=== PATIENT | female | born 1975 | race Caucasian/White ===

== ENCOUNTER 2017-07-22 10:39 | Emergency (ER) | payer OTHER ==
[~2017-07-22] VITALS: Ht 154.9 cm; Wt 63.5 kg
[2017-07-22] MEDS ORDERED: BENZTROPINE MESYLATE (2MG/2ML) 2 MG/2 ML AMPUL ONE (10:42)
[2017-07-22] MEDS ORDERED: HALOPERIDOL LACTATE INJ 5 MG/ML VIAL ONE (10:42)
[2017-07-22] MEDS ORDERED: LORAZEPAM INJ 2 MG/ML VIAL ONE (10:43)
[2017-07-22] MEDS ORDERED: HALOPERIDOL LACTATE INJ 5 MG/ML VIAL IM ONE (11:00)
[2017-07-22] MEDS ORDERED: BENZTROPINE MESYLATE (2MG/2ML) 2 MG/2 ML AMPUL IM ONE (11:00)
[2017-07-22] MEDS ORDERED: LORAZEPAM INJ 2 MG/ML VIAL IM ONE (11:00)
--- NOTE | 2017-07-22 11:00 | NUR ---
malena 86 from mental health outpatient for bizarre behavior and language, NAD noted, VSS, resp even and unlabored, pt was put on monitor, waiting for md hummel.
[2017-07-22 11:16] LABS: BASOPHILS # (AUTO) 0.1 /CMM (0.0-0.2); BASOPHILS % (AUTO) 0.5 % (0.0-2.0); EOSINOPHILS % (AUTO) 2.4 % (0.0-6.0); HEMATOCRIT 41 % (33-45); LYMPHOCYTES # (AUTO) 2.4 /CMM (0.8-4.8); LYMPHOCYTES % (AUTO) 19.9 % (20.0-44.0); MEAN CORPUSCULAR HGB CONC 34 g/dl (31.0-36.0); MEAN CORPUSCULAR VOLUME 86 fL (82-100); MONOCYTES # (AUTO) 0.8 /CMM (0.1-1.30); MONOCYTES % (AUTO) 6.7 % (2.0-12.0); NEUTROPHILS # (AUTO) 8.2 /CMM (1.8-8.9); NEUTROPHILS % (AUTO) 70.5 % (43.0-81.0); PLATELET COUNT (AUTO) 393 /CMM (150-450); RDW COEFFICIENT OF VARIATION 12.7 (11.5-15.0); RED BLOOD CELL COUNT(AUTO) 4.78 MIL/uL (4.0-5.2); WHITE BLOOD COUNT (AUTO) 11.8 K/uL (4.3-11.0)
[2017-07-22 11:22] LABS: CALCIUM, SERUM 8.2 mg/dL (8.5-10.1); CARBON DIOXIDE 20 mmol/L (21-32); CHLORIDE 106 mmol/L (98-107); GLUCOSE 166 mg/dL (74-106); POTASSIUM 3.4 mmol/L (3.5-5.1); SODIUM SERUM 140 mmol/L (136-145); UREA NITROGEN, BLOOD 12 mg/dL (7-18)
[2017-07-22 11:28] LABS: ALANINE AMINOTRANSFERASE 21 U/L (12-78); ALBUMIN 3.1 g/dL (3.4-5.0); ALCOHOL, BLOOD < 3 mg/dL (0-0); ALKALINE PHOSPHATASE 86 U/L (46-116); ASPARTATE AMINOTRANSFERASE 22 U/L (15-37); BILIRUBIN,DIRECT 0.1 mg/dL (0.0-0.2); BILIRUBIN,TOTAL 0.3 mg/dL (0.2-1.0); SALICYLATE 3.7 mg/dL (2.8-20.0)
[2017-07-22 11:29] LABS: ACETAMINOPHEN 0 ug/ml (10-30)
--- NOTE | 2017-07-22 11:46 | NUR ---
urine collected, called lab for chicken picker
[2017-07-22 12:11] LABS: APPEARANCE,URINE Slightly Cloudy (CLEAR); BILIRUBIN,URINE Negative (NEGATIVE); BLOOD, URINE Negative Ery/uL (NEGATIVE); KETONES,URINE Negative (NEGATIVE); LEUKOCYTE ESTERASE ,URINE Negative (NEGATIVE); NITRITE, URINE Negative (NEGATIVE); PROTEIN,URINE 100 mg/dl (NEGATIVE); UGLUCOSE Negative (NEGATIVE)
[2017-07-22 12:12] LABS: COLOR,URINE Dark Yellow (YELLOW)
[2017-07-22 12:19] LABS: BACTERIA,URINE None seen /HPF (None Seen); MUCUS,URINE Few /LPF (None Seen); SQUAMOUS EPITHELIAL CELL,UR Few /HPF (None Seen)
--- NOTE | 2017-07-22 12:57 | NUR ---
CALLED JOSE TINAJERO FOR PSYCH EVAL
--- NOTE | 2017-07-22 15:51 | NUR ---
MEAL TRAY PROVIDED TO THE PT
--- NOTE | 2017-07-22 17:57 | NUR ---
CALLED P[facility] FOR PSYCH EVAL
--- NOTE | 2017-07-22 19:00 | NUR ---
Patient is resting comfortably in bed with eyes closed. Easily aroused. VSS
--- NOTE | 2017-07-22 23:14 | NUR ---
RECEIVED REPORT FROM KAREN SELLERS FOR RADHA. PT RESTING, APPEARS COMFORTABLE IN BED.
--- NOTE | 2017-07-23 00:34 | NUR ---
Patient is resting comfortably in bed with eyes closed. Easily aroused. VSS
--- NOTE | 2017-07-23 06:16 | NUR ---
PT AOX3. DR LIGHT AT BEDSIDE SPEAKING TO PT.
--- NOTE | 2017-07-23 06:36 | NUR ---
Patient discharged to home in stable condition. Written and verbal after care instructions given. Patient verbalizes understanding of instruction. VSS upon discharge. Pt ambulated with steady gait out of ER. Pt denies SI and HI.
[2017-07-23 06:37] VITALS: BP 118/77
== END 2017-07-23 06:39 | disposition home or self-care (01) ==
LOC: ER 10:41 → TELE 17:54 → UNDOADMIN 17:54 → ER 07-23 06:39
DX: F23 Brief psychotic disorder (principal); F19.10 Other psychoactive substance abuse, uncomplicated
CPT/HCPCS: 36415; 71045-TC; 80048-TC; 80076-TC; 80305; 81000-TC; 82962-TC; 84703-TC; 85025-TC; 87081-TC; A4606; G0480; J0515; J1630; J2060; Z7610

== ENCOUNTER 2017-08-20 16:04 | Inpatient (IN) | payer OTHER ==
[~2017-08-20] VITALS: Ht 157.5 cm; Wt 73.9 kg
[2017-08-20] MEDS ORDERED: HALOPERIDOL LACTATE INJ 5 MG/ML VIAL ONE (16:50)
--- NOTE | 2017-08-20 16:50 | NUR ---
PT MEDICATED ORDERED.
[2017-08-20] MEDS ORDERED: HALOPERIDOL LACTATE INJ 5 MG/ML VIAL IM ONE (17:00)
--- NOTE | 2017-08-20 17:00 | NUR ---
ASSISTED FRANCHISE SALES MANAGER AT FOR BLOOD DRAW WHEN PT SUDDENLY BECAME RESTLESS, AGITATED. KICKING, YELLING, ALMOST HIT STAFF. SAFELY PLACED ON RESTRAINTS PER PROTOCOL. AT BS. VSS. WILL CONTINUE TO MONITOR.
[2017-08-20 17:03] LABS: BASOPHILS # (AUTO) 0.1 /CMM (0.0-0.2); BASOPHILS % (AUTO) 0.5 % (0.0-2.0); EOSINOPHILS % (AUTO) 0.4 % (0.0-6.0); HEMATOCRIT 41 % (33-45); LYMPHOCYTES # (AUTO) 1.8 /CMM (0.8-4.8); MEAN CORPUSCULAR HGB CONC 34 g/dl (31.0-36.0); MEAN CORPUSCULAR VOLUME 86 fL (82-100); MONOCYTES # (AUTO) 0.5 /CMM (0.1-1.30); MONOCYTES % (AUTO) 5.4 % (2.0-12.0); NEUTROPHILS # (AUTO) 7.7 /CMM (1.8-8.9); NEUTROPHILS % (AUTO) 75.7 % (43.0-81.0); PLATELET COUNT (AUTO) 315 /CMM (150-450); RDW COEFFICIENT OF VARIATION 12.6 (11.5-15.0); RED BLOOD CELL COUNT(AUTO) 4.75 MIL/uL (4.0-5.2); WHITE BLOOD COUNT (AUTO) 10.1 K/uL (4.3-11.0)
[2017-08-20 17:37] LABS: CALCIUM, SERUM 8.3 mg/dL (8.5-10.1); CARBON DIOXIDE 23 mmol/L (21-32); CHLORIDE 109 mmol/L (98-107); CREATININE 0.7 mg/dL (0.6-1.3); GLUCOSE 102 mg/dL (74-106); POTASSIUM 3.2 mmol/L (3.5-5.1); SODIUM SERUM 141 mmol/L (136-145); UREA NITROGEN, BLOOD 11 mg/dL (7-18)
[2017-08-20 17:40] LABS: ALANINE AMINOTRANSFERASE 22 U/L (12-78); ALBUMIN 3.5 g/dL (3.4-5.0); ALCOHOL, BLOOD < 3 mg/dL (0-0); ALKALINE PHOSPHATASE 69 U/L (46-116); ASPARTATE AMINOTRANSFERASE 22 U/L (15-37); BILIRUBIN,DIRECT 0.1 mg/dL (0.0-0.2); BILIRUBIN,TOTAL 0.5 mg/dL (0.2-1.0); SALICYLATE 4.1 mg/dL (2.8-20.0); TOTAL PROTEIN, SERUM 7.1 g/dL (6.4-8.2)
[2017-08-20 17:44] LABS: THYROID STIMULATING HORMONE 0.808 uIU/mL (0.358-3.74)
[2017-08-20 17:45] LABS: ACETAMINOPHEN < 2 ug/ml (10-30)
--- NOTE | 2017-08-20 19:00 | NUR ---
PT TAKEN TO CT.
--- NOTE | 2017-08-20 19:11 | NUR ---
URINE SAMPLE OBTAINED, SENT.
--- NOTE | 2017-08-20 19:20 | NUR ---
PT PROVIDED WITH WATER TO DRINK REQUESTED. KEPT COMFORTABLE. VSS. WILL MONITOR.
[2017-08-20 19:48] LABS: APPEARANCE,URINE Clear (CLEAR); BILIRUBIN,URINE SMALL (NEGATIVE); BLOOD, URINE Negative Ery/uL (NEGATIVE); COLOR,URINE Yellow (YELLOW); KETONES,URINE 15 (NEGATIVE); LEUKOCYTE ESTERASE ,URINE Negative (NEGATIVE); NITRITE, URINE Negative (NEGATIVE); PROTEIN,URINE 100 mg/dl (NEGATIVE); UGLUCOSE Negative (NEGATIVE); UROBILINOGEN,URINE 0.2 EU/dL (0.2)
[2017-08-20 20:06] LABS: BACTERIA,URINE Few /HPF (None Seen); RBC,URINE 0-2 /HPF (0-2); SQUAMOUS EPITHELIAL CELL,UR Many /HPF (None Seen)
--- NOTE | 2017-08-20 20:46 | NUR ---
CALLED NURSING DEPUTY FIRE CHIEF AND REQUESTED A TELE BED FOR THIS PT.
--- NOTE | 2017-08-20 20:52 | NUR ---
PT IS ASSIGNED TO [facility] #:[phone], PT IS DIAGNOSED WITH ALTERED MENTAL STATUS/BRAIN TUMOR, AND DR CUMMINGS IS THE ACCEPTING MD.
--- NOTE | 2017-08-20 22:02 | NUR ---
REPORT GIVEN TO BRIGIDO JONES FOR [id number].
[2017-08-20] MEDS ORDERED: IV NS 0.9% 1,000 ML IV PRN (22:03)
[2017-08-20] MEDS ORDERED: POTASSIUM CHLORIDE 20 MEQ TAB.PRT.SR PO ONE (22:30)
[2017-08-20] MEDS ORDERED: MAG HYDROX/AL HYDROX/SIMETH 30 ML UDC PO PRN (22:30)
[2017-08-20] MEDS ORDERED: ZOLPIDEM TARTRATE 5 MG TABLET PO PRN (22:30)
[2017-08-20] MEDS: POTASSIUM CL. PREMIX PERIPHER. 50 ML IV SCH ×2 (22:30→23:30)
[2017-08-20] MEDS ORDERED: LORAZEPAM INJ 2 MG/ML VIAL IV PRN (22:30)
[2017-08-20] MEDS ORDERED: Z GUARD REMEDY 2 OZ OINT TP PRN (22:30)
[2017-08-20] MEDS: ENOXAPARIN SODIUM 40 MG/0.4 ML DISP.SYRIN SQ SCH (22:30)
[2017-08-20] MEDS ORDERED: HYDROCODONE/APAP 5/325MG 1 EACH TABLET PO PRN (22:30)
[2017-08-20] MEDS ORDERED: ACETAMINOPHEN 325 MG TABLET PO PRN (22:30)
[2017-08-20] MEDS ORDERED: ONDANSETRON HCL/PF 4 MG/2 ML VIAL IVP PRN (22:30)
[2017-08-20] MEDS ORDERED: MAGNESIUM HYDROXIDE 30 ML UDC PO PRN (22:30)
--- NOTE | 2017-08-20 22:35 | NUR ---
ADMISSION NOTES: RECEIVED REPORT FROM JOVANNA GANN RN, PT BROUGHT TO THE UNIT VIA GURNEY, PT ABLE TO AMBULATE WITH ASSISTANCE. PT BROUGHT TO ER BY POLICE PT BEEN FOUND WITH BIZARRE BEHAVIOR AND AGITATION,PER ER REPORT PT BEEN LOUD, YELLING, UNPREDICTABLE, AND HEARING VOICES. PT A/O X2, ON RA RESPIRATION EVEN AND UNLABORED. SITTER AT BED SIDE. PT HAS NO IV ACCESS, PT REFUSING FOR IT. ORIENTED PT TO UNIT POLICY AND HOURLY ROUNDING. ASSESSMENT PERFORMED, ASKED PT IF SHE'S STILL HEARING VOICES, PT RESPOND "YES", WHEN ASKED WHAT IS THE VOICE TELLING HER, PT DID NOT ANSWER. SITTER WITNESS. ADMISSION ASSESSMENT PERFORMED, BUT UNABLE TO GET ENOUGH INFORMATION PT REFUSED TO ANSWER MOST OF THE QUESTION. PT ALSO REFUSED SKIN ASSESSMENT AND REFUSED TO HAVE HER BAG CHECK FOR INVENTORY. VS TAKEN AND RECORDED. PLACED ON TELE MONITORING, SINUS RHYTHM HR 85. DESPITE GIVING EDUCATION. DYNAMICS AX DEVELOPER AWARE. SUPERVISOR DENTAL LABORATORY MADE AWARE. SAFETY PRECAUTIONS FOR FALL INITIATED, CALL LIGHT IN REACH, WILL CONTINUE MONITORING PT.
--- NOTE | 2017-08-20 22:49 | NUR ---
rn notes: pt came without iv access. explain to the pt regarding the need for iv insertion to give iv medication, but pt refusing stated she doesnt want to be poke, no blood draw but she's okay to take pills. vashti at bed side, charmaine, as witness, relayed to corn shuckermallory mata. spoke to [facility] production broaching machine operator gerardo russell, regarding the issue, per devulcanizer operator okay not to have iv access and leave the pt alone, if that's what the pt wants. also gave an order for vashti, 1:1.
--- NOTE | 2017-08-20 22:50 | NUR ---
RN NOTES: PT DENIES ANY PLAN OF HURTING HERSELF. WILL CONTINUE TO MONITOR
[2017-08-20 23:00] VITALS: BP 115/60
[2017-08-21] VITALS: BP 118/65
--- NOTE | 2017-08-21 | NUR ---
RN NOTES: PT ASLEEP, APPEARS CALM AND COMFORTABLE, SITTER AT BED SIDE, ON TELEMENTORING, SINUS RHYTHM HR 93.
[2017-08-21] MEDS: POTASSIUM CL. PREMIX PERIPHER. 50 ML IV SCH ×2 (00:30→01:30)
[2017-08-21 04:00] VITALS: BP 113/60
--- NOTE | 2017-08-21 04:13 | NUR ---
RN NOTES: PT ASLEEP, SITTER AT BED SIDE
[2017-08-21 06:20] LABS: BASOPHILS % (AUTO) 0.3 % (0.0-2.0); EOSINOPHILS % (AUTO) 1.4 % (0.0-6.0); HEMATOCRIT 41 % (33-45); HEMOGLOBIN 13.9 g/dL (11.5-14.8); LYMPHOCYTES # (AUTO) 2.4 /CMM (0.8-4.8); LYMPHOCYTES % (AUTO) 22.1 % (20.0-44.0); MEAN CORPUSCULAR HGB CONC 34 g/dl (31.0-36.0); MEAN CORPUSCULAR VOLUME 88 fL (82-100); MONOCYTES # (AUTO) 0.8 /CMM (0.1-1.30); MONOCYTES % (AUTO) 7.2 % (2.0-12.0); NEUTROPHILS # (AUTO) 7.5 /CMM (1.8-8.9); PLATELET COUNT (AUTO) 309 /CMM (150-450); RDW COEFFICIENT OF VARIATION 13.7 (11.5-15.0); RED BLOOD CELL COUNT(AUTO) 4.71 MIL/uL (4.0-5.2); WHITE BLOOD COUNT (AUTO) 10.8 K/uL (4.3-11.0)
[2017-08-21 06:36] LABS: CALCIUM, SERUM 8.3 mg/dL (8.5-10.1); CREATININE 0.6 mg/dL (0.6-1.3); MAGNESIUM 1.9 mg/dL (1.8-2.4); POTASSIUM 3.2 mmol/L (3.5-5.1)
--- NOTE | 2017-08-21 06:44 | NUR ---
RN CLOSING NOTES: PT IN BED, AWAKE, REMAINS A/O X2, PT REMAINS CALM WITHOUT COMPLAINTS, BUT REMAINS UNCOOPERATIVE REFUSING IV INSERTION. REMAINS ON SINUS RHYTHM HR 85. SITTER AT BED SIDE. PT REMAINS TO REFUSED SKIN CHECK AND INVENTORY OF BELONGINGS. NO UNTOWARD BEHAVIOR HAPPENED THROUGHOUT THE SHIFT. FOR PSYCHE CONSULT, SOCIAL SVC CONSULT AND NEURO CONSULT. SAFETY PRECAUTIONS FOR FALL REMAINS ENGAGED, CALL LIGHT IN REACH. WILL ENDORSE TO DAY RN FOR RADHA.
[2017-08-21 06:50] LABS: THYROID STIMULATING HORMONE 1.301 uIU/mL (0.358-3.74)
--- NOTE | 2017-08-21 07:47 | NUR ---
CELERY CUTTER/OPENING NOTES 1:1 SITTER AT BEDSIDE. PT. IS SLEEPING, BREATHING UNLABORED, AND EVEN ON ROOM AIR. TELE MONITOR READING NO S/S OF ACUTE DISTRESS. NO IV ACCESS DUE TO PT. REFUSING LAST NIGHT PER NURSE REPORT. BED IS IN LOWEST, AND LOCKED POSITION. 2 SIDE RAILS UP, AND CALL LIGHT WITHIN REACH. ALL NEEDS MET. WILL CONTINUE TO ASSESS AND MONITOR.
--- NOTE | 2017-08-21 07:50 | NUR ---
TELE MONITOR READING SINUS RHYTHM 87, TO SINUS TACHYCARDIA 113.
[2017-08-21 07:52] VITALS: BP 101/56
--- NOTE | 2017-08-21 08:13 | NUR ---
TELE MONITORING WAS DISCONTINUED PER DR. AGUAYO, LAST RHYTHM WAS SINUS RHYTHM 83 BPM.
[2017-08-21] MEDS ORDERED: PANTOPRAZOLE 40 MG VIAL IV SCH (09:00)
--- NOTE | 2017-08-21 11:18 | NUR ---
Social service consult requested by KEVEN Sanchez for homelessness. Pt. is a 41 year old female who was admitted to [facility] for altered mental status. SW and case liner Amalia Bravo met with pt. bedside. Pt. has a sitter bedside. Pt. is alert and oriented x 3. Pt. had her eyes closed for most part of the assessment. Pt. was cooperative in answering questions that were asked of her. Pt. appeared disheveled. Pt. states she has been homeless for the past three months since she broke up with her boyfriend. Prior to being homeless, pt. was living with her boyfriend in [facility]. Pt. is currently getting services at [facility] facility located at [address] [place] [address] in [place]. [place] . Pt's wet machine cutter is Cathy. Pt. denied any history of psychiatric diagnosis or hospitalizations, however per H&P, pt. has a history of Schizophrenia. Pt. denies suicidal and homicidal ideations and visual/ auditory hallucinations at this time. Pt. drug of choice is methamphetamines and marijuana. Pt. states she uses methamphetamines on and off and the last time she used was a day ago. Pt's toxicology shows positive for methamphetamines. Pt. denies alcohol use. Pt. receives general relief and food stamps. Pt. is willing to take homeless senior living resources upon discharge. Pt. is awaiting a psychiatric evaluation as well prior to discharge. geotechnical department manager Erin is aware of pt's discharge plan. No other social service needs are required at this time. SW is available, if needed.
[2017-08-21] MEDS ORDERED: CT SWABBABLE VALVE TRANS SET 1 EA INFUS.SET MC ONE (13:59)
[2017-08-21] MEDS ORDERED: IV NS 0.9% 500 ML IV ONE (13:59)
[2017-08-21] MEDS ORDERED: IOHEXOL-350 100 ML VIAL IV ONE (13:59)
[2017-08-21] MEDS: POTASSIUM CHLORIDE 20 MEQ TAB.PRT.SR PO SCH ×2 (14:24→16:12)
[2017-08-21 16:10] VITALS: BP 111/68
[2017-08-21] MEDS ORDERED: PNEUMOCOCCAL 23-VAL P-SAC VAC 0.5 ML VIAL SQ ONE (18:00)
--- NOTE | 2017-08-21 18:39 | NUR ---
Patient is homeless and patient did not provide any info of her relatives or family. Pt.is a 41 year old female who was admitted to [facility] for altered mental status. SW and bilingual patient support caseworker met with pt. bedside. Pt. has a sitter bedside. Pt. is alert and oriented x 3. Pt. had her eyes closed for most part of the assessment. Pt. was cooperative in answering questions that were asked of her. Pt. appeared disheveled. Pt. states she has been homeless for the past three months since she broke up with her boyfriend. Prior to being homeless, pt. was living with her boyfriend in [facility]. Pt. is currently getting services at [facility] facility located at [address] [place] [address] in [place]. [place] . Pt's nut roaster helper is Cathy. Pt. denied any history of psychiatric diagnosis or hospitalizations, however per H&P, pt. has a history of Schizophrenia. Pt. denies suicidal and homicidal ideations and visual/ auditory hallucinations at this time. Pt. drug of choice is methamphetamines and marijuana. Pt. states she uses methamphetamines on and off and the last time she used was a day ago. Pt's toxicology shows positive for methamphetamines. Pt. denies alcohol use. Pt. receives general relief and food stamps. Pt. is willing to take homeless group home resources upon discharge. Addendum: 08/21/17 at 1854 by BASILIA GIPSON RN Amended: Links added.
--- NOTE | 2017-08-21 18:53 | NUR ---
RN CLOSING NOTES PT. IS IN BED A&OX4. PT. IS BREATHING UNLABORED, AND EVEN ON ROOM AIR. VITAL SIGNS WNL. NO S/S OF ACUTE DISTRESS. IV ACCESS ON LEFT ANTECUBITAL SITE IS INTACT AND PATENT. PT. HAS BEEN DISCHARGED AFTER CTA WAS REVIEWED BY DR. QUINTANILLA. DISCUSSED WITH PT. DISCHARGE AND PT. REQUESTED TO LEAVE TOMORROW MORNING INSTEAD OF TONIGHT. DISCUSSED PT. WISHES WITH CASE MANAGEMENT, AND DR. QUINTANILLA. PER DR. QUINTANILLA, AND STEWARD/STEWARDESS DECK PT. CAN BE DISCHARGED TOMORROW MORNING. PT. WILL NEED UP TO 4 TOKENS BEFORE DISCHARGE PER PT. REQUEST. PT. RECEIVED PNA VACCINE. BED IS IN LOWEST, AND LOCKED POSITION, AND 2 SIDE RAILS UP. ALL NEEDS WERE MET. WILL ENDORSE REPORT TO NURSE.
--- NOTE | 2017-08-21 19:20 | NUR ---
MS/RN OPENING NOTES PT RECEIVED IN BED WITH EYES CLOSED. EASILY AROUSABLE. A/OX3. APPEARS WITHDRAWN. IV TO LAC PATENT AND INTACT. ON ROOM AIR BREATHING EVEN AND UNLABORED. DENIES SOB OR PAIN AT THIS TIME. BED IN LOW/LOCKED POSITION WITH CALL LIGHT IN REACH. SIDE RAILS UPX2. WILL CONTINUE TO MONITOR
[2017-08-21 20:00] VITALS: BP 101/50
[2017-08-21] MEDS: ENOXAPARIN SODIUM 40 MG/0.4 ML DISP.SYRIN SQ SCH (22:18)
--- NOTE | 2017-08-21 22:45 | NUR ---
MS/RN NOTES PT AGREED TO SKIN CHECK. NO SKIN ISSUES NOTED.
--- NOTE | 2017-08-21 22:50 | NUR ---
MS/RN NOTES PT REFUSING IVF AT THIS TIME. STATES "SHE DOES NOT NEED IT". EDUCATION PROVIDED X3. STILL REFUSING
--- NOTE | 2017-08-22 06:53 | NUR ---
MS/RN CLOSING NOTES PT ASLEEP, AROUSABLE TO NAME. A/OX3. REMAINS WITHDRAWN AND QUIET DURING SHIFT. REMAINS ON ROOM AIR, BREATHING EVEN AND UNLABORED. DENIES SOB OR PAIN. IV TO LAC PATENT AND INTACT. NO SIGNIFICANT CHANGES OVERNIGHT. PT REFUSED BED BATH AND LINEN CHANGE DURING SHIFT. KEPT PT COMFORTABLE DURING SHIFT. ALL NEEDS MET. BED REMAINS IN LOW/LOCKED POSITION WITH CALL LIGHT IN REACH. SIDE RAILS UPX2. WILL ENDORSE TO DAY SHIFT KAREN GARCIA. Addendum: 08/22/17 at 0705 by NENA CID RN PT ALLOWED FOR LINEN CHANGE
[2017-08-22 07:26] LABS: CALCIUM, SERUM 8.6 mg/dL (8.5-10.1); CREATININE 0.6 mg/dL (0.6-1.3); POTASSIUM 3.7 mmol/L (3.5-5.1)
--- NOTE | 2017-08-22 07:50 | NUR ---
RN OPENING NOTES RECEIVED PT. A&OX4. BREATHING UNLABORED, AND EVENLY ON ROOM AIR. NO S/S OF ACUTE DISTRESS. REMOVED IV PER PT. REQUEST. BED IS IN LOWEST, AND LOCKED POSITION. 2 SIDE RAILS UP, AND CALL LIGHT WITHIN REACH. ALL NEEDS MET. WILL CONTINUE TO ASSESS AND MONITOR.
--- NOTE | 2017-08-22 07:52 | NUR ---
TECHNICAL TESTING ENGINEER DISCHARGE INSTRUCTIONS WERE GIVEN WITH EDUCATION, AND PT. VERBALIZED UNDERSTANDING. PT. WAS GIVEN RESOURCES PROVIDED BY THE DEPUTY COUNTY CLERK, WHICH PT. ACCEPTED, AND AGREED TO TO TO ONE AFTER DISCHARGE. IV WAS REMOVED WITHOUT COMPLICATIONS. PT. REFUSED TO CHECK BELONGINGS, AND SIGNED BELONGINGS LIST. ALL QUESTIONS ANSWERED. PT. WILL BE PROVIDED BUS TOKENS BEFORE DISCHARGE. DISCHARGE PACKET WAS SIGNED, AND GIVEN TO PT.
--- NOTE | 2017-08-22 08:35 | NUR ---
RN NOTES PT. HAD REFUSED TO PROVIDE A SENIOR CARE SHE WAS GOING TO TODAY BEFORE DISCHARGE, BUT AGREED TO SHE WOULD USE RESOURCES PROVIDED BY LOGISTICS SUPERVISOR, TO FIND ONE TO GO TO. THEN, PT. REPORTED SHE WAS GOING TO GO BACK TO [facility] AT [address] [place] [address].
[2017-08-22] MEDS ORDERED: ARIP30TA3 PO (19:59)
== END 2017-08-22 08:30 | disposition home or self-care (01) | DRG 52 ==
LOC: ER 16:10 → TELE 21:31 → MED 08-21 08:02
PROVIDERS: ADMIT Hospitalist; ATTEND Hospitalist
DX: G92 Toxic encephalopathy (principal); Q28.3 Other malformations of cerebral vessels; F15.221 Other stimulant dependence with intoxication delirium; F20.9 Schizophrenia, unspecified; E87.6 Hypokalemia; F17.210 Nicotine dependence, cigarettes, uncomplicated; Z59.0 Homelessness; F29 Unspecified psychosis not due to a substance or known physiological condition; F12.10 Cannabis abuse, uncomplicated; F10.10 Alcohol abuse, uncomplicated; Y90.0 Blood alcohol level of less than 20 mg/100 ml
CPT/HCPCS: 36415; 70450-TC; 70496-TC; 80048-TC; 80061-TC; 80076-TC; 80305; 81000-TC; 82746; 83735-TC; 84100-TC; 84443-TC; 84703-TC; 85025-TC; 87081-TC; 90732; A4606; C9113; G0480; J1630; J1650; J7030; J7040; Q9967; Z7610